=== PATIENT | female | born 1975 | race Two or more races ===

== ENCOUNTER → 2018-01-12 | Emergency (ER) | payer OTHER ==
[~2018-01-12] MED LIST: KLONOPIN0.5 MG/TAB; PAXIL20 MG
== END | disposition home or self-care (01) ==
LOC: ER 08:25
DX: M54.2 Cervicalgia (principal)

== ENCOUNTER → 2018-05-21 | Emergency (ER) | payer OTHER ==
[~2018-05-21] VITALS: Ht 160 cm; Wt 52.2 kg
[~2018-05-21] MED LIST changes: +AMITIZA24 MCG PO
== END | disposition left against medical advice (07) ==
LOC: ER 23:41
DX: Z53.20 Procedure and treatment not carried out because of patient's decision for unspecified reasons (principal)